=== PATIENT | female | born 1995 | race Caucasian/White ===

== ENCOUNTER 2022-02-03 19:57 | Inpatient (IN) | payer OTHER ==
[2022-02-03] MEDS ORDERED: THIAMINE 100 MG/ML 2 ML VIAL IM STA (20:37)
[2022-02-03] MEDS ORDERED: LORazepam 2 MG/ML INJ IV PRN ×2 (20:37)
[2022-02-03 21:38] LABS: ALT 37 U/L (4-34); AST 123 U/L (14-36); African American GFR (CKD) >90 (>60 ml/min/1.73 sqM); Albumin 4.6 g/dL (3.5-5.0); Alkaline Phosphatase 116 U/L (38-126); Anion Gap 7 mmol/L; Blood Urea Nitrogen 6 mg/dL (7-17); Calcium 9.6 mg/dL (8.4-10.2); Carbon Dioxide 25 mmol/L (22-30); Chloride 101 mmol/L (98-107); Glucose 117 mg/dL (74-99); Non-African American GFR(CKD) >90 (>60 ml/min/1.73 sqM); Potassium 3.9 mmol/L (3.5-5.1); Sodium 133 mmol/L (137-145); Total Bilirubin 1.3 mg/dL (0.2-1.3); Total Protein 7.2 g/dL (6.3-8.2)
[2022-02-03 21:52] LABS: Appearance,Urine Cloudy (Clear); Bilirubin,Urine Negative (Negative); Blood,Urine Negative (Negative); Color,Urine Yellow; Glucose,Urine (UA) Negative (Negative); Ketones,Urine Negative (Negative); Leukocyte Esterase,Urine Trace (Negative); Nitrite,Urine Negative (Negative); Protein,Urine Negative (Negative); RBC,Urine <1 /hpf (0-5); Specific Gravity,Urine 1.005 (1.001-1.035); Squamous Epithelial Cell,Urine 7 /hpf (0-4); Urobilinogen,Urine <2.0 mg/dL (<2.0); WBC,Urine 2 /hpf (0-5)
[2022-02-03 21:56] LABS: Basophils % (A) 0 %; Eosinophils % (A) 1 %; HGB 12.6 gm/dL (11.4-16.0); Lymphocytes # (A) 0.8 k/uL (1.0-4.8); Lymphocytes % (A) 20 %; MCH 38.2 pg (25.0-35.0); MCV 112.4 fL (80.0-100.0); Macrocytosis Marked; Mean Platelet Volume 8.8; Monocytes # (A) 0.3 k/uL (0-1.0); Monocytes % (A) 7 %; Neutrophils # (A) 2.9 k/uL (1.3-7.7); Neutrophils % (A) 71 %; Platelet Count 124 k/uL (150-450); RBC 3.29 m/uL (3.80-5.40); RDW 13.1 % (11.5-15.5); WBC 4.1 k/uL (3.8-10.6)
[2022-02-03] MEDS ORDERED: NICOTINE 21MG/24HR PATCH TRANSDERM STA (22:14)
[2022-02-03] MEDS ORDERED: SODIUM CHLORIDE 0.9% 1,000 ML IV STA (22:16)
[2022-02-03 22:20] LABS: Amphetamine Screen,Urine Not Detected (NotDetected); Barbiturate Screen,Urine Not Detected (NotDetected); Benzodiazepines Screen,Urine Detected (NotDetected); Cocaine Screen,Urine Not Detected (NotDetected); Methadone Screen, Urine Not Detected (NotDetected); Opiate Screen,Urine Not Detected (NotDetected); Oxycodone Screen, Urine Not Detected (NotDetected); Phencyclidine Screen,Urine Not Detected (NotDetected); Tricyclic Antidepressant,Urine Not Detected (NotDetected); Urn Cannabinoid Scrn Not Detected (NotDetected)
[2022-02-03] MEDS ORDERED: MIDAZOLAM 1 MG/ML 5 ML VIAL IV STA (23:09)
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
[2022-02-03 23:41] LABS: Anisocytosis (M) Present
[2022-02-03] MEDS ORDERED: DIAZEPAM 5 MG/ML 2 ML INJ IVP STA (23:50)
[2022-02-03] MEDS ORDERED: diphenhydrAMINE 50 MG/ML 1 ML VIAL IVP STA (23:50)
[2022-02-03] MEDS ORDERED: DIAZEPAM 5 MG/ML 2 ML INJ IVP PRN (23:50)
[2022-02-03] MEDS ORDERED: MORPHINE SULFATE 4 MG/ML SYRINGE IV PRN (23:54)
[2022-02-03] MEDS ORDERED: NALOXONE 0.4 MG/ML 1 ML VIAL IV PRN (23:54)
[2022-02-03] MEDS ORDERED: ONDANSETRON 4 MG/2 ML VIAL IVP PRN (23:54)
[2022-02-04] MEDS: DEXTROSE 5%-0.45% NACL 1,000 ML IV SCH ×2 (00:28→18:04)
--- NOTE | 2022-02-04 00:32 | P.HPIM ---
History of Present Illness H&P Date: 02/04/22 Chief Complaint: Hallucinations This is a 18-year-old white female who is being admitted with visual and auditory hallucinations. Patient is from [place] and her last drink was 2 days ago. She has history of alcohol abuse/dependence. She denies nausea or vomiting, no abdominal pain, no hematuria dysuria hematemesis or hematochezia. She currently has not had tremors. She denies dizziness or loss of consciousness. She states that her hallucinations are better compared to few hours ago. Review of Systems 10 systems reviewed, pertinent positive and negative findings as in HPI. Positive for hallucinations, no chest pain no abdominal pain. Medications and Allergies Home Medications Medication Instructions Recorded Confirmed Type Acetaminophen Tab [Tylenol] 650 mg PO TID PRN 02/03/22 02/03/22 History Calcium/Magnesium/Vit D3/[place] 1 cap PO TID 02/03/22 02/03/22 History [Calcium-Mag Oxide-Vit D3 Sftgl] Chlorpheniramine Maleate 4 mg PO Q4H PRN 02/03/22 02/03/22 History [Chlor-Trimeton] Hyoscyamine Sulfate [Levsin-Sl] 0.125 mg SL QID PRN 02/03/22 02/03/22 History Ibuprofen [Motrin Ib] 600 mg PO Q6H PRN 02/03/22 02/03/22 History LORazepam [Ativan] 2 mg PO Q4-6H 02/03/22 02/03/22 History Loperamide [Imodium] 4 mg PO QID PRN 02/03/22 02/03/22 History Magnesium Hydroxide [Milk of 2,400 mg PO BID PRN 02/03/22 02/03/22 History Magnesia] Multivitamins, Thera [Multivitamin 1 tab PO DAILY 02/03/22 02/03/22 History (formulary)] PARoxetine [Paxil] 20 mg PO DAILY@61402/03/22 02/03/22 History Thiamine HCl [Vitamin B-1] 100 mg PO DAILY 02/03/22 02/03/22 History buPROPion XL [Wellbutrin XL] 150 mg PO DAILY@61402/03/22 02/03/22 History cloNIDine HCL [Catapres] 0.1 - 0.3 mg PO Q4H PRN 02/03/22 02/03/22 History ondansetron HCL [Zofran] 8 mg PO Q6H PRN 02/03/22 02/03/22 History Allergies Allergy/AdvReac Type Severity Reaction Status Date / Time No Known Allergies Allergy Unverified 02/03/22 21:02 Physical Exam Vitals: Vital Signs Temp Pulse Resp BP Pulse Ox 02/03/22 20:52 99.1 F 97 18 133/93 98 Intake and Output 02/03/22 02/03/22 02/04/22 14:59 22:59 06:59 Other: Weight 86.183 kg Constitutional: No acute distress, conversant, pleasant Eyes: Anicteric sclerae, moist conjunctiva, no lid-lag, PERRLA ENMT: NC/AT,Oropharynx clear, no erythema, exudates Neck:Supple, FROM, no masses, or JVD, No carotid bruits; No thyromegaly Lungs: Clear to auscultation, Clear to percussion, Normal respiratory effort, no accessory muscle use Cardiovascular: Heart regular in rate and rhythm, No murmurs, gallops, or rubs no peripheral edema Abdominal: Soft Nontender, nom distended, no guarding, no rebound or rigidity, Normoactive bowel sounds No hepatomegaly, No splenomegaly, No palpable mass No abdominal wall hernia noted Skin: Normal temperature, tone, texture, turgor, No induration No subcutaneous nodules, No rash, lesions, No ulcers Extremities:No digital cyanosis No clubbing, Pedal pulses intact Psychiatric: Alert and oriented to person, place and time Neuro: Muscles Strength 5/5 in all 4 extremities, Sensation to light touch grossly present throughout Results CBC & Chem 7: 02/03/22 21:07 02/03/22 21:07 Labs: Abnormal Lab Results - Last 24 Hours (Table) 02/03/22 02/03/22 02/03/22 Range/Units 21:07 21:07 21:07 RBC 3.29 L (3.80-5.40) m/uL MCV 112.4 H (80.0-100.0) fL MCH 38.2 H (25.0-35.0) pg Plt Count 124 L (150-450) k/uL Lymphocytes # 0.8 L (1.0-4.8) k/uL Macrocytosis Marked A Sodium 133 L (137-145) mmol/L BUN 6 L (7-17) mg/dL Glucose 117 H (74-99) mg/dL AST 123 H (14-36) U/L ALT 37 H (4-34) U/L Urine Appearance Cloudy H (Clear) Ur Leukocyte Esterase Trace H (Negative) Ur Squamous Epith Cells 7 H (0-4) /hpf U Benzodiazepines Scrn Detected H (NotDetected) Assessment and Plan Assessment: 1. Alcohol abuse/dependence without evidence of withdrawal with hallucinations: On serial protocol, Valium when necessary. Vitamins and supportive care. 2. Tobacco abuse/dependence without evidence of withdrawal: Nicotine patch as indicated. 3. Elevated LFTs likely associated with alcohol dependence, monitor. Disposition: Back to rehab pending clinical progression. DVT prophylaxis: SCDs Plan: 1. Alcohol abuse/dependence
[2022-02-04 09:14] LABS: ALT 33 U/L (4-34); AST 113 U/L (14-36); African American GFR (CKD) >90 (>60 ml/min/1.73 sqM); Alkaline Phosphatase 99 U/L (38-126); Anion Gap 7 mmol/L; Blood Urea Nitrogen 6 mg/dL (7-17); Calcium 8.7 mg/dL (8.4-10.2); Carbon Dioxide 25 mmol/L (22-30); Chloride 103 mmol/L (98-107); Glucose 99 mg/dL (74-99); Lipase 200 U/L (23-300); Magnesium 1.8 mg/dL (1.6-2.3); Non-African American GFR(CKD) >90 (>60 ml/min/1.73 sqM); Phosphorus 4.1 mg/dL (2.5-4.5); Potassium 3.8 mmol/L (3.5-5.1); Sodium 135 mmol/L (137-145); Total Bilirubin 1.3 mg/dL (0.2-1.3); Total Protein 6.4 g/dL (6.3-8.2)
[2022-02-04 09:52] LABS: Basophils % (A) 0 %; Eosinophils # (A) 0.1 k/uL (0-0.7); Eosinophils % (A) 1 %; HCT 34.8 % (34.0-46.0); HGB 11.6 gm/dL (11.4-16.0); Lymphocytes % (A) 26 %; MCH 37.4 pg (25.0-35.0); MCHC 33.2 g/dL (31.0-37.0); MCV 112.4 fL (80.0-100.0); Macrocytosis Marked; Mean Platelet Volume 8.6; Monocytes # (A) 0.2 k/uL (0-1.0); Monocytes % (A) 6 %; Neutrophils # (A) 2.4 k/uL (1.3-7.7); Neutrophils % (A) 64 %; Platelet Count 109 k/uL (150-450); RBC 3.09 m/uL (3.80-5.40); RDW 12.2 % (11.5-15.5); WBC 3.8 k/uL (3.8-10.6)
[2022-02-04] MEDS: LORazepam 2 MG/ML INJ IV PRN ×2 (12:28→18:10)
[2022-02-04] MEDS: THIAMINE 100 MG TAB PO SCH ×2 (16:57→18:03)
[2022-02-04] MEDS: MULTIVITAMINS, THERA 1 EACH TAB PO SCH (18:03)
[2022-02-04] MEDS ORDERED: NICOTINE 21MG/24HR PATCH TRANSDERM ONE (22:00)
[2022-02-05] MEDS: DEXTROSE 5%-0.45% NACL 1,000 ML IV SCH ×2 (03:22→09:19)
[2022-02-05] MEDS: THIAMINE 100 MG TAB PO SCH (06:54)
[2022-02-05 08:36] VITALS: RESP 16
[2022-02-05] MEDS: MULTIVITAMINS, THERA 1 EACH TAB PO SCH (09:19)
--- NOTE | 2022-02-05 12:21 | P.DS ---
Providers Date of admission: 02/03/22 23:54 Attending physician: Alexander Worthy MD Primary care physician: Physician Nonsta Hospital Course: This is a 18-year-old white female who is being admitted with visual and auditory hallucinations. Patient is from [place] and her last drink was 2 days ago. She has history of alcohol abuse/dependence. She denies nausea or vomiting, no abdominal pain, no hematuria dysuria hematemesis or hematochezia. She currently has not had tremors. She denies dizziness or loss of consciousness. She states that her hallucinations are better compared to few hours ago. Patient was examined at bedside today not complaining of any new symptomatology. Patient denies any hallucinations auditory or visual. Case discussed with RN patient did not require any Ativan. At this time she is okay to be discharged back to her facility. Discussed with case management. Patient's vital signs are stable, normotensive afebrile, Patient Condition at Discharge: Fair Plan - Discharge Summary Discharge Rx Participant: Yes New Discharge Prescriptions: Continue ondansetron HCL [Zofran] 8 mg PO Q6H PRN PRN Reason: Nausea And Vomiting buPROPion XL [Wellbutrin XL] 150 mg PO DAILY@0615 Thiamine HCl [Vitamin B-1] 100 mg PO DAILY Magnesium Hydroxide [Milk of Magnesia] 2,400 mg PO BID PRN PRN Reason: Constipation Hyoscyamine Sulfate [Levsin-Sl] 0.125 mg SL QID PRN PRN Reason: abdominal cramping LORazepam [Ativan] 2 mg PO Q4-6H Acetaminophen Tab [Tylenol] 650 mg PO TID PRN PRN Reason: Fever And/ Or Pain Loperamide [Imodium] 4 mg PO QID PRN PRN Reason: Diarrhea cloNIDine HCL [Catapres] 0.1 - 0.3 mg PO Q4H PRN PRN Reason: High BP Chlorpheniramine Maleate [Chlor-Trimeton] 4 mg PO Q4H PRN PRN Reason: Allergy Symptoms PARoxetine [Paxil] 20 mg PO DAILY@0615 Calcium/Magnesium/Vit D3/[employer] [Calcium-Mag Oxide-Vit D3 Sftgl] 1 cap PO TID Multivitamins, Thera [Multivitamin (formulary)] 1 tab PO DAILY Ibuprofen [Motrin Ib] 600 mg PO Q6H PRN PRN Reason: Pain Discharge Medication List Acetaminophen Tab [Tylenol] 650 mg PO TID PRN 02/03/22 [History] Calcium/Magnesium/Vit D3/[employer] [Calcium-Mag Oxide-Vit D3 Sftgl] 1 cap PO TID 02/03/22 [History] Chlorpheniramine Maleate [Chlor-Trimeton] 4 mg PO Q4H PRN 02/03/22 [History] Hyoscyamine Sulfate [Levsin-Sl] 0.125 mg SL QID PRN 02/03/22 [History] Ibuprofen [Motrin Ib] 600 mg PO Q6H PRN 02/03/22 [History] LORazepam [Ativan] 2 mg PO Q4-6H 02/03/22 [History] Loperamide [Imodium] 4 mg PO QID PRN 02/03/22 [History] Magnesium Hydroxide [Milk of Magnesia] 2,400 mg PO BID PRN 02/03/22 [History] Multivitamins, Thera [Multivitamin (formulary)] 1 tab PO DAILY 02/03/22 [History] PARoxetine [Paxil] 20 mg PO DAILY@61402/03/22 [History] Thiamine HCl [Vitamin B-1] 100 mg PO DAILY 02/03/22 [History] buPROPion XL [Wellbutrin XL] 150 mg PO DAILY@61402/03/22 [History] cloNIDine HCL [Catapres] 0.1 - 0.3 mg PO Q4H PRN 02/03/22 [History] ondansetron HCL [Zofran] 8 mg PO Q6H PRN 02/03/22 [History] Follow up Appointment(s)/Referral(s): Nonstaff,Physician [Primary Care Provider] - 1-2 days
[2022-02-05 12:30] VITALS: BP 137/69; PULSE 81; TEMP 97.6
== END 2022-02-05 14:25 | DRG 897 ==
LOC: EC 19:57 → 3SCARD 23:54
PROVIDERS: ADMIT Internal Medicine; ATTEND Internal Medicine
DX: F10.20 Alcohol dependence, uncomplicated (principal); R44.0 Auditory hallucinations; R44.1 Visual hallucinations; F41.9 Anxiety disorder, unspecified; R25.3 Fasciculation; F17.210 Nicotine dependence, cigarettes, uncomplicated; R74.01 Elevation of levels of liver transaminase levels; Z79.899 Other long term (current) drug therapy
CPT/HCPCS: 36415; 80053; 80306; 81001; 81025; 82075; 83690; 83735; 84100; 85025; 96361; 96372; 96374; 96375; 96376; 99291

== ENCOUNTER 2022-02-10 20:06 | Emergency (ER) | payer OTHER ==
[2022-02-10 20:12] VITALS: RESP 18
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
[2022-02-10] MEDS ORDERED: LORazepam 1 MG TAB PO STA (21:05)
--- NOTE | 2022-02-10 21:45 | CT ---
EXAMINATION TYPE: CT brain cspine wo con DATE OF EXAM: 02/10/2022 COMPARISON: None HISTORY: seizure activity CT DLP: 1345.8 mGycm Automated exposure control for dose reduction was used. Ventricles have normal size. There is no mass effect or midline shift. No sign of intracranial hemorr robb. Calvarium is intact. There is normal aeration of the mastoid sinuses. Cervical vertebra have normal spacing and alignment. Posterior elements are intact. Facet joints appe ar normal. Prevertebral soft tissues are intact. The skull base is intact. IMPRESSION: Negative CT scan of the brain. Negative CT scan of the cervical spine.
[2022-02-10 22:59] LABS: Glucose,Whole Blood 124 mg/dL (70-110)
[2022-02-10 23:57] VITALS: BP 151/94; PULSE 87; TEMP 98.3
== END 2022-02-11 | disposition home or self-care (01) ==
LOC: EC 20:06
DX: S06.0X9A Concussion with loss of consciousness of unspecified duration, initial encounter (principal); F10.239 Alcohol dependence with withdrawal, unspecified; J45.909 Unspecified asthma, uncomplicated; F17.200 Nicotine dependence, unspecified, uncomplicated; F32.A Depression, unspecified; F41.9 Anxiety disorder, unspecified; Z79.899 Other long term (current) drug therapy; W18.39XA Other fall on same level, initial encounter; Y90.9 Presence of alcohol in blood, level not specified
CPT/HCPCS: 36415; 70450; 72125; 93005; 99285